=== PATIENT | female | born 1980 | race Two or more races ===

== ENCOUNTER → 2023-01-21 | Outpatient (CLI) | payer OTHER | END | disposition home or self-care (01) | LOC: RX STUDY 09:11 | PROVIDERS: ATTEND Obstetrics & Gynecology Reproductive Endocrinology | DX: N93.0 Postcoital and contact bleeding (principal) ==

== ENCOUNTER 2025-02-05 06:14 | Emergency (ER) | payer OTHER ==
[~2025-02-05] VITALS: Ht 170.2 cm; Wt 86.2 kg
[2025-02-05 09:34] LABS: BASO % 0.4 % (0.1-1.2); EOS # 0.29 (0.04-0.54); EOS % 2.1 % (0.7-7.0); HEMOGLOBIN 13.2 g/dL (11.2-15.7); LYMPH # 1.77 (1.18-3.74); LYMPH % 12.6 % (19.3-53.1); MEAN CORPUSCULAR HEMOGLOBIN 29.7 pg (25.6-32.2); MONO # 0.61 (0.24-0.82); MONO % 4.3 % (4.7-12.5); NEUT # 10.99 (1.56-6.13); NEUT % 78.2 % (34.0-71.1); PLATELET COUNT 308 K/uL (163-369); RED BLOOD COUNT 4.45 M/uL (3.93-5.22); RED CELL DISTRIBUTION WIDTH 13.6 % (11.6-14.4)
[2025-02-05 09:53] LABS: PH,URINE 7.5 (5.0-8.0); URINE APPEARANCE Clear; URINE BILIRRUBIN Negative (NEGATIVE); URINE BLOOD Negative; URINE COLOR Yellow; URINE GLUCOSE Negative (NEGATIVE); URINE KETONE Negative (NEGATIVE); URINE LEUKOCYTE Negative; URINE NITRATE Negative; URINE PROTEIN Negative (NEGATIVE); URINE UROBILINOGEN 0.2 E.U./dl
[2025-02-05 09:55] LABS: INR 0.96; PARTIAL THROMBOPLASTIN TIME 26.2 SECONDS (22.0-34.0); PROTHROMBIN TIME 10.5 SECONDS (9.0-11.5)
[2025-02-05 09:58] LABS: URINE BACTERIA 226.2 uL (0.0-1933); URINE EPITHELIAL CELLS 2.8 uL (0.0-38.8); URINE RBC 2.2 uL (0.0-20.8); URINE WBC 4.1 uL (0.0-23.2)
[2025-02-05 10:05] LABS: ALBUMIN 3.1 gm/dL (3.4-5.0); ALKALINE PHOSPHATASE 88 U/L (50-136); ALT/SGPT 58 U/L (12-78); ANION GAP 10 (10.0-20.0); AST/SGOT 24 U/L (15-37); BILIRUBIN TOTAL 0.26 mg/dL (0.3-1.2); BILIRUBIN,CONJUGATED < 0.10 mg/dL (0.0-0.2); BILIRUBIN,UNCONJUGATED 0.16 mg/dL (0.0-0.6); BLOOD UREA NITROGEN 8 mg/dL (7-18); BUN CREA RATIO 21 (7.0-25.0); CALCIUM 8.9 mg/dL (8.5-10.1); CARBON DIOXIDE 25 mEq/L (21-32); CHLORIDE 109 mmol/L (98-107); CREATININE SERUM 0.39 mg/dL (0.55-1.02); GFR 180.23; GLUCOSE FASTING 81 mg/dL (65-100); OSMOLALITY SERUM 277 MOSM/KG (275-295); POTASSIUM 3.78 mEq/L (3.5-5.1); SODIUM 140 mmol/L (136-145); TOTAL PROTEIN 7.1 gm/dL (6.4-8.2)
[2025-02-05] MEDS ORDERED: TRAMADOL HCL 50 MG TABLET PO STA (14:00)
== END 2025-02-05 15:44 | disposition home or self-care (01) ==
LOC: ER 06:14
PROVIDERS: General Practice
DX: O99.891 Other specified diseases and conditions complicating pregnancy (principal); Z3A.19 19 weeks gestation of pregnancy; R25.2 Cramp and spasm

== ENCOUNTER 2025-06-24 12:53 | Outpatient (CLI) | payer OTHER | END 2025-06-24 14:05 | disposition home or self-care (01) | LOC: NST 12:53 | PROVIDERS: ATTEND Obstetrics & Gynecology Gynecology | DX: Z34.83 Encounter for supervision of other normal pregnancy, third trimester (principal) ==

== ENCOUNTER 2025-06-28 09:47 | Outpatient (CLI) | payer OTHER | END 2025-06-28 11:25 | disposition home or self-care (01) | LOC: NST 09:47 | PROVIDERS: ATTEND Obstetrics & Gynecology Gynecology | DX: Z34.83 Encounter for supervision of other normal pregnancy, third trimester (principal) ==

== ENCOUNTER 2025-07-01 14:23 | Inpatient (IN) | payer OTHER ==
[~2025-07-01] VITALS: Ht 170.2 cm; Wt 4.1 kg
[2025-07-06 18:22] VITALS: BP 133/84
[2025-07-06] MEDS ORDERED: RINGERS SOLUTION,LACTATED 1,000 ML IV SCH (18:30)
[2025-07-06] MEDS ORDERED: MISOPROSTOL 25 MCG TABLET VAG ONE (18:30)
[2025-07-06 18:58] LABS: BASO % 0.1 % (0.1-1.2); EOS # 0.08 (0.04-0.54); EOS % 1.1 % (0.7-7.0); LYMPH # 1.38 (1.18-3.74); LYMPH % 18.8 % (19.3-53.1); MEAN PLATELET VOLUME 9.70 fl (9.4-12.4); MONO # 0.45 (0.24-0.82); MONO % 6.1 % (4.7-12.5); NEUT # 5.37 (1.56-6.13); NEUT % 73.4 % (34.0-71.1); RED CELL DISTRIBUTION WIDTH 14.3 % (11.6-14.4)
[2025-07-06] MEDS ORDERED: MORPHINE SULFATE 4 MG/ML CARTRIDGE IV PRN (19:15)
[2025-07-06] MEDS ORDERED: FAMOTIDINE/PF 20 MG in 0.9 % SODIUM CHLORIDE 8 ML IV PUSH PRN (19:15)
[2025-07-06 19:19] LABS: INR < 0.93
[2025-07-06 19:26] LABS: ALT/SGPT 22.0 U/L (12-78); AST/SGOT 26.0 U/L (15-37); BILIRUBIN TOTAL 0.25 mg/dL (0.3-1.2); BUN CREA RATIO 26.0 (7.0-25.0); CREATININE SERUM 0.69 mg/dL (0.55-1.02); GFR 92.86; GLOBULINA 3.5 G/DL (2.4-3.5); GLUCOSE FASTING 113.0 mg/dL (65-100); OSMOLALITY SERUM 278.0 MOSM/KG (275-295)
[2025-07-06 23:38] VITALS: BP 113/69; O2SAT 100
[2025-07-06] MEDS ORDERED: PRENATAL TABLE1 EAC4 PO (23:55)
[2025-07-07 04:21] VITALS: BP 103/52
[2025-07-07] MEDS ORDERED: OXYTOCIN 20 UNITS/500ML RL PIGGYBAG IV ONE (07:16)
[2025-07-07] MEDS ORDERED: OXYTOCIN 500 ML IV ONE (07:30)
[2025-07-07 07:56] VITALS: BP 127/77
[2025-07-07 11:27] VITALS: BP 130/78
[2025-07-07] MEDS ORDERED: ERYTHROMYCIN BASE OPHT 1GM EACH TUBE OP ONE (15:06)
[2025-07-07] MEDS ORDERED: OXYTOCIN 10 UNITS/ML VIAL ONE (15:20)
[2025-07-07 15:22] VITALS: BP 131/78
[2025-07-07] MEDS ORDERED: MORPHINE SULFATE 4 MG/ML CARTRIDGE IV PRN (15:45)
[2025-07-07] MEDS ORDERED: OXYTOCIN 1,000 ML IV ONE (15:45)
[2025-07-07] MEDS ORDERED: RINGERS SOLUTION,LACTATED 1,000 ML IV SCH (15:45)
[2025-07-07] MEDS ORDERED: GABAPENTIN 300 MG CAPSULE PO SCH (17:00)
[2025-07-07] MEDS ORDERED: SIMETHICONE 125 MG CAPSULE PO SCH (17:00)
[2025-07-07] MEDS ORDERED: KETOROLAC TROMETHAMINE 30 MG VIAL IV SCH (18:00)
[2025-07-07] MEDS ORDERED: ONDANSETRON HCL 2 MG/ML VIAL IV SCH (18:00)
[2025-07-07] MEDS ORDERED: ACETAMINOPHEN 500 MG GEL..CAP PO SCH (18:00)
[2025-07-07 20:57] VITALS: BP 122/78
[2025-07-08 00:50] VITALS: BP 119/75
[2025-07-08 06:20] LABS: BASO % 0.2 % (0.1-1.2); EOS # 0.04 (0.04-0.54); EOS % 0.4 % (0.7-7.0); LYMPH # 1.20 (1.18-3.74); LYMPH % 11.7 % (19.3-53.1); MEAN PLATELET VOLUME 10.10 fl (9.4-12.4); MONO # 0.66 (0.24-0.82); MONO % 6.4 % (4.7-12.5); NEUT # 8.29 (1.56-6.13); NEUT % 80.8 % (34.0-71.1); RED CELL DISTRIBUTION WIDTH 14.7 % (11.6-14.4)
[2025-07-08] MEDS ORDERED: KETOROLAC TROMETHAMINE 10 MG TABLET PO SCH (08:00)
[2025-07-08] MEDS ORDERED: OxyCODONE HCL 5 MG TABLET (ROXICODONE) PO PRN (08:00)
[2025-07-08] MEDS ORDERED: DOCUSATE SODIUM 100MG CAP PO SCH (09:00)
[2025-07-08 09:05] VITALS: BP 106/65
[2025-07-08 19:02] VITALS: BP 129/80
[2025-07-09 00:58] VITALS: BP 115/75
[2025-07-09 05:30] VITALS: BP 90/59
[2025-07-09 08:00] VITALS: BP 119/82
[2025-07-09 18:27] VITALS: BP 113/76
[2025-07-10] VITALS: BP 112/73
[2025-07-10 08:00] VITALS: BP 130/79
== END 2025-07-10 14:48 | disposition home or self-care (01) | DRG 788 ==
LOC: OB/GYN 14:23 → LDR 07-06 18:12 → O/R 07-07 16:35 → OB/GYN 07-07 17:30
PROVIDERS: Obstetrics & Gynecology; ADMIT Obstetrics & Gynecology Maternal & Fetal Medicine; ATTEND Obstetrics & Gynecology Maternal & Fetal Medicine
PROC: 3E0P7VZ Introduction of Hormone into Female Reproductive, Via Natural or Artificial Opening (ICD-10-PCS; 2025-07-06)
PROC: 4A1HXCZ Monitoring of Products of Conception, Cardiac Rate, External Approach (ICD-10-PCS; 2025-07-06)
PROC: 3E033VJ Introduction of Other Hormone into Peripheral Vein, Percutaneous Approach (ICD-10-PCS; 2025-07-07)
PROC: 10D00Z1 Extraction of Products of Conception, Low, Open Approach (ICD-10-PCS; principal; 2025-07-07 19:00)
DX: O61.0 Failed medical induction of labor (principal); O36.63X0 Maternal care for excessive fetal growth, third trimester, not applicable or unspecified; Z3A.40 40 weeks gestation of pregnancy; Z37.0 Single live birth

== ENCOUNTER 2025-07-06 14:43 | Outpatient (CLI) | payer OTHER ==
[2025-07-06 15:15] VITALS: BP 127/83
[2025-07-06] MEDS ORDERED: PRENATAL TABLE1 EAC4 PO (23:55)
== END 2025-07-06 16:32 | disposition home or self-care (01) ==
LOC: NST 14:43
PROVIDERS: ATTEND Obstetrics & Gynecology
DX: Z34.83 Encounter for supervision of other normal pregnancy, third trimester (principal)